=== PATIENT | male | born 1975 | race Caucasian/White ===

== ENCOUNTER 2016-10-11 19:19 | Emergency (ER) | payer OTHER ==
--- NOTE | 2016-10-11 19:25 | ER Document Report ---
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 Patient states that he repeatedly rinsed his eye at work. I have greeted and performed a rapid initial assessment of this patient. A comprehensive ED assessment and evaluation of the patient, analysis of test results and completion of the medical decision making process will be conducted by additional ED providers. Physical Exam - HEENT Conjunctiva: Injected, Other - Swelling noted to conjunctiva of left eye
[2016-10-11] MEDS ORDERED: DIPHENHYDRAMINE HCL 50 MG CAPSULE PO ONE (23:07)
--- NOTE | 2016-10-11 23:09 | ER Document Report ---
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 States that since that time he has had itching and redness of the left eye. It is moderately improved since onset. Nothing improves or worsens the symptoms. He has had similar reactions in the past and he has eaten fish. He denies any shortness of breath, cough, wheezing, vomiting, or diarrhea. He has not seen his primary care doctor regarding today's concerns. - Related Data Allergies/Adverse Reactions: fish derived Allergy (Severe, Verified 10/11/16 19:26) Past Medical History - General Information source: Patient - Social History Smoking Status: Never Smoker Chew tobacco use (# tins/day): No Frequency of alcohol use: None Drug Abuse: None Family History: Reviewed & Not Pertinent Patient has suicidal ideation: No Patient has homicidal ideation: No Renal/ Medical History: Denies: Hx Peritoneal Dialysis Review of Systems - Review of Systems Notes: Constitutional: Negative for fever. HENT: Negative for sore throat. Eyes: Positive for left-sided conjunctivitis Cardiovascular: Negative for chest pain. Respiratory: Negative for shortness of breath. Gastrointestinal: Negative for abdominal pain, vomiting or diarrhea. Genitourinary: Negative for dysuria. Musculoskeletal: Negative for back pain. Skin: Negative for rash. Neurological: Negative for headaches, weakness or numbness. 10 point ROS negative except as marked above and in HPI. Physical Exam - Vital signs Vitals: Temp Pulse Resp BP Pulse Ox 97.6 F 76 18 132/76 H 95 10/11/16 19:30 10/11/16 19:30 10/11/16 19:30 10/11/16 19:30 10/11/16 19:30 Interpretation: Normal Notes: PHYSICAL EXAMINATION: GENERAL: Well-appearing, well-nourished and in no acute distress. HEAD: Atraumatic, normocephalic. EYES: Pupils equal round and reactive to light, extraocular movements intact, conjunctival injection on the left. Ocular pressures 9 on the left 12 on the right. There is some erythema and mild edema of the superior and inferior eyelids. Fluorescing staining does not show any uptake ENT: nares patent, oropharynx clear without exudates. Moist mucous membranes. NECK: Normal range of motion, supple without lymphadenopathy LUNGS: Breath sounds clear to auscultation bilaterally and equal. No wheezes rales or rhonchi. HEART: Regular rate and rhythm without murmurs ABDOMEN: Soft, nontender, normoactive bowel sounds. No guarding, no rebound. No masses appreciated. EXTREMITIES: Normal range of motion, no pitting or edema. No cyanosis. NEUROLOGICAL: No focal neurological deficits. Moves all extremities spontaneously and on command. PSYCH: Normal mood, normal affect. SKIN: Warm, Dry, normal turgor, no rashes or lesions noted. Course - Re-evaluation Re-evalutation: 10/11/16 23:07 Patient presents with conjunctival irritation and lid edema consistent with likely allergic reaction. He was stocking fish and some of the juice from the fish got into his eye. He is known to be allergic to fish. Corneal staining without evidence of a corneal ulcer abrasion. Lid flipped and no evidence of a foreign body. Extraocular motions intact. Ocular pressures 9. 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 Verbal discharge instructions given a the bedside and opportunity for questions given. Medication warnings reviewed. Patient is in agreement with this plan and has verbalized understanding of return precautions and the need for primary care follow-up in the next 24-72 hours. - Vital Signs Vital signs: Temp Pulse Resp BP Pulse Ox 97.1 F 81 17 130/77 H 100 10/11/16 23:27 10/11/16 23:27 10/11/16 23:27 10/11/16 23:27 10/11/16 23:27 Discharge - Discharge Clinical Impression: Allergic conjunctivitis Qualifiers: Laterality: left Qualified Code(s): H10.12 - Acute atopic conjunctivitis, left eye Condition: Good Disposition: HOME, SELF-CARE Additional Instructions: You can take Benadryl 50 mg every 6 hours as needed for eye irritation. You can also purchase [id number] antihistamine eyedrops. Please follow-up with your eye doctor in the next several days. Return if you have worsening of the redness and discharge from the eye, increasing pain, decreased vision, or any other symptoms that are concerning to you. Forms: Return to Work
[2016-10-11 23:29] VITALS: BP 130/77
== END 2016-10-11 23:27 | disposition home or self-care (01) ==
LOC: ER 19:19
DX: H10.12 Acute atopic conjunctivitis, left eye (principal); X58.XXXA Exposure to other specified factors, initial encounter; Y93.89 Activity, other specified; Y92.512 Supermarket, store or market as the place of occurrence of the external cause; Y99.0 Civilian activity done for income or pay; Z91.013 Allergy to seafood
CPT/HCPCS: 99283

== ENCOUNTER 2020-04-11 19:22 | Emergency (ER) | payer BC, MEDICAID ==
[2020-04-11] MEDS ORDERED: KETOROLAC TROMETHAMINE INJ/PF 30 MG/1 ML SDV IV ONE ×2 (20:42→22:46)
[2020-04-11] MEDS ORDERED: METOCLOPRAMIDE HCL INJ/PF 10 MG/2 ML SDV IV ONE (20:42)
[2020-04-11] MEDS ORDERED: DIPHENHYDRAMINE HCL 50 MG/ML VIAL IV ONE (20:42)
[2020-04-11] MEDS ORDERED: RINGERS SOLUTION,LACTATED 1,000 ML IV ONE (20:42)
--- NOTE | 2020-04-11 20:43 | ER Document Report ---
ED Medical Screen (RME) - General Chief Complaint: Abdominal Pain Stated Complaint: ABDOMINAL PAIN, CHILLS, CONGESTION, HEADACHE Time Seen by Provider: 04/11/20 20:39 Mode of Arrival: Ambulatory Information source: Patient, Relative Notes: HPI; 44-year-old male past medical history significant for autism and migraines, here with his [id number] presents to the emergency room with a headache, sinus congestion and abdominal pain that started earlier today. Complains of nausea but no vomiting. No fevers. No urinary symptoms. No recent head injury or head trauma. States feels similar to previous migraines. No recent travel. No known COVID-19 exposure however he does work at [employer] and his employer told him he would need to be COVID tested before he can return to work. PE: Alert and oriented x3. Lungs: Clear to auscultation without rales, rhonchi, wheezes. Heart: Regular rate rhythm without murmurs, rubs, gallops. I have greeted and performed a rapid initial assessment of this patient. A comprehensive ED assessment and evaluation of the patient, analysis of test results and completion of the medical decision making process will be conducted by additional ED providers. I have specifically instructed the patient or family members with the patient to immediately return to any nursing staff should anything change in the patient's condition or with their chief complaint. TRAVEL OUTSIDE OF THE [place] IN LAST 30 DAYS: No - Related Data Allergies/Adverse Reactions: fish derived Allergy (Severe, Verified 10/11/16 19:26) Past Medical History Renal/ Medical History: Denies: Hx Peritoneal Dialysis Physical Exam - Vital signs Vitals: Temp Pulse Resp BP Pulse Ox 97.5 F 75 20 137/82 H 100 04/11/20 20:06 04/11/20 20:06 04/11/20 20:06 04/11/20 20:06 04/11/20 20:06 Course - Vital Signs Vital signs: Temp Pulse Resp BP Pulse Ox 97.5 F 75 20 137/82 H 100 04/11/20 20:06 04/11/20 20:06 04/11/20 20:06 04/11/20 20:06 04/11/20 20:06
--- NOTE | 2020-04-11 22:42 | ER Document Report ---
ED General - General Chief Complaint: Abdominal Pain Stated Complaint: ABDOMINAL PAIN, CHILLS, CONGESTION, HEADACHE Time Seen by Provider: 04/11/20 20:39 Mode of Arrival: Ambulatory Notes: Patient is a 44-year-old male that comes emergency department for chief complaint of feeling weak, abdominal pain and cramping, nausea, headache, some vague sinus congestion. Symptoms started earlier today. Patient states he also started getting chills and he appears to be having chills on my evaluation. Patient states he gets migraines and this feels similar, he has a history of autism, he takes no daily medications. Patient has no recent travel, no obvious sick exposures. Patient started complaining of symptoms at work earlier today and he was told reportedly that he would need COVID-19 testing before he can return to work because of his symptoms. TRAVEL OUTSIDE OF THE [place] IN LAST 30 DAYS: No - Related Data Allergies/Adverse Reactions: fish derived Allergy (Severe, Verified 10/11/16 19:26) Past Medical History - General Information source: Patient, Relative - Social History Smoking Status: Never Smoker Frequency of alcohol use: None Drug Abuse: None Lives with: Family Family History: Reviewed & Not Pertinent Neurological Medical History: Reports: Hx Migraine Renal/ Medical History: Denies: Hx Peritoneal Dialysis - Immunizations Immunizations up to date: Yes Hx Diphtheria, Pertussis, Tetanus Vaccination: Yes Review of Systems - Review of Systems Constitutional: See HPI EENT: No symptoms reported Cardiovascular: No symptoms reported Respiratory: No symptoms reported Gastrointestinal: See HPI Genitourinary: No symptoms reported Male Genitourinary: No symptoms reported Musculoskeletal: No symptoms reported Skin: No symptoms reported Hematologic/Lymphatic: No symptoms reported Neurological/Psychological: No symptoms reported Physical Exam - Vital signs Vitals: Temp Pulse Resp BP Pulse Ox 97.5 F 75 20 137/82 H 100 04/11/20 20:06 04/11/20 20:06 04/11/20 20:06 04/11/20 20:06 04/11/20 20:06 - Notes Notes: GENERAL: Alert, interacts well. No acute distress. HEAD: Normocephalic, atraumatic. EYES: Pupils equal, round, and reactive to light. Extraocular movements intact. ENT: Oral mucosa moist, tongue midline. Oropharynx unremarkable. Airway patent. Nares patent, sinuses non-tender, ear canals unremarkable, TM's intact. NECK: Full range of motion. Supple. Trachea midline. No lymphadenopathy. No nuchal rigidity. LUNGS: Clear to auscultation bilaterally, no wheezes, rales, or rhonchi. No respiratory distress. Non-tender chest wall. HEART: Regular rate and rhythm. No murmur ABDOMEN: Soft, non-tender. Non-distended. No distention or guarding. Bowel sounds present in all 4 quadrants. GENITOURINARY: Deferred EXTREMITIES: Moves all 4 extremities spontaneously. No edema, normal radial and dorsalis pedis pulses bilaterally. No cyanosis. BACK: no cervical, thoracic, lumbar midline tenderness. No saddle anesthesia, normal distal neurovascular exam. Moves all extremities in full range of motion. NEUROLOGICAL: Alert and oriented x3. Normal speech. Cranial nerves II through XII grossly intact. Strength 5/5 in all extremities. PSYCH: Normal affect, normal mood. SKIN: Warm, dry, normal turgor. No rashes or lesions noted. Course - Re-evaluation Re-evalutation: Patient is alert and well-appearing on my exam. No nuchal rigidity, no neurological deficits, no signs of distress. Soft benign abdomen, clear lungs, unremarkable ENT exam. CBC, chemistry, urinalysis unremarkable. On reevaluation patient states his headache is completely gone he has no current complaints, he is requesting COVID-19 testing and discharge. Apparently his work is requiring him to have this to return to work based on his symptoms, therefore this was performed, discussed quarantine, symptom management (provided with nausea medication), and return precautions in detail. Patient states appreciation and agreement. Stable and well-appearing at time of discharge. - Vital Signs Vital signs: Temp Pulse Resp BP Pulse Ox 98.0 F 79 19 130/73 H 100 04/12/20 01:30 04/12/20 01:30 04/12/20 01:30 04/12/20 01:30 04/12/20 01:30 - Laboratory Result Diagrams: 04/11/20 23:30 04/11/20 23:30 Discharge - Discharge Clinical Impression: Generalized weakness, Abdominal cramping, Chills, Person under investigation for COVID-19 Headache Qualifiers: Headache type: unspecified Headache chronicity pattern: acute headache Intractability: not intractable Qualified Code(s): R51 - Headache Condition: Stable Disposition: HOME, SELF-CARE Additional Instructions: Your evaluation and work-up is reassuring. The exact cause of your symptoms is uncertain but this could be viral. You have been tested for COVID-19. Please quarantine until you are contacted with your results. See additional instructions below. Take nausea medication if needed, you can take Tylenol and ibuprofen if needed for pain, drink plenty of fluids and rest. Return if you worsen including vomiting, severe abdominal pain, spiking fevers, difficulty breathing, or any other concerning symptoms. As a person under investigation for COVID-19, the [place] Department of Health and Human Services (division on public health) advises you to adhere to the following guidance until your test results are reported to you. If your test result is positive, you will receive additional information from your provider and your local health department at that time. Remain at home until you are cleared by the health provider or public health authorities. Keep a log of visitors to your home, notify any visitors to your home of your isolation status. If you plan to move to a new address or leave the [facility], notify the local health department in your County. Call your Doctor or seek care if you have an urgent medical need. Before seeking medical care, call him to get instructions from the provider before arriving at the medical office, clinic, or hospital. Notify them that you are being tested for the virus (COVID-19) so that arrangements can be made, as necessary, to prevent transmission to others in the healthcare setting. Next, notify the local health department in your county. If a medical emergency arises and you need to call 911, inform the first responders that you are being tested for the virus that causes COVID-19. Next, notify the local health department in your county. Prescriptions: Ondansetron [Zofran Odt 4 mg Tablet] 1 - 2 tab PO Q4H PRN #15 tab.rapdis PRN Reason: For Nausea/Vomiting Forms: Return to Work
[2020-04-11] MEDS ORDERED: METOCLOPRAMIDE HCL INJ/PF 10 MG/2 ML SDV ONE (22:59)
[2020-04-11 23:56] LABS: ABSOLUTE EOSINOPHILS # (AUTO) 0.3 10^3/uL (0.0-0.6); ABSOLUTE LYMPHOCYTES (AUTO) 1.7 10^3/uL (0.5-4.7); ABSOLUTE MONOCYTES (AUTO) 0.6 10^3/uL (0.1-1.4); ABSOLUTE NEUT (AUTO) 4.4 10^3/uL (1.7-8.2); BASOPHILS % (AUTO) 0.5 % (0-2); EOSINOPHILS % (AUTO) 4.5 % (0-6); HEMATOCRIT 45.5 % (37.9-51.0); HEMOGLOBIN 15.8 g/dL (13.5-17.0); LYMPHOCYTES % (AUTO) 24.7 % (13-45); MEAN CORPUSCULAR HGB CONC 34.7 g/dL (32.0-36.0); MEAN CORPUSCULAR VOLUME 89 fl (80-97); MONOCYTES % (AUTO) 8.1 % (3-13); PLATELET COUNT 236 10^3/uL (150-450); RED CELL DISTRIBUTION WIDTH 13.2 % (11.5-14.0); SEGMENTED NEUTROPHILS % (AUTO) 62.2 % (42-78); TOTAL CELLS COUNTED % (AUTO) 100 %
[2020-04-12 00:11] LABS: ALBUMIN 4.6 g/dL (3.5-5.0); ALKALINE PHOSPHATASE 64 U/L (38-126); ANION GAP 9 (5-19); ASPARTATE AMINO TRANSFERASE 27 U/L (17-59); BILIRUBIN,TOTAL 0.8 mg/dL (0.2-1.3); BLOOD UREA NITROGEN 13 mg/dL (7-20); CALCIUM 9.4 mg/dL (8.4-10.2); CARBON DIOXIDE 26 mmol/L (22-30); CHLORIDE 104 mmol/L (98-107); GLUCOSE 99 mg/dL (75-110); POTASSIUM 4.2 mmol/L (3.6-5.0); TOTAL PROTEIN 7.5 g/dL (6.3-8.2)
[2020-04-12 00:45] LABS: APPEARANCE,URINE CLEAR; BILIRUBIN,URINE NEGATIVE (NEGATIVE); COLOR,URINE STRAW; GLUCOSE, URINE NEGATIVE (NEGATIVE); KETONES,URINE NEGATIVE (NEGATIVE); LEUKOCYTE ESTERASE,URINE NEGATIVE (NEGATIVE); NITRITE,URINE NEGATIVE (NEGATIVE); PROTEIN,URINE NEGATIVE (NEGATIVE); URINE SPECIFIC GRAVITY 1.009; UROBILINOGEN,URINE NEGATIVE mg/dL (<2.0)
[2020-04-12 01:32] VITALS: BP 130/73
== END 2020-04-12 01:32 | disposition home or self-care (01) ==
LOC: ER 19:22
DX: R10.9 Unspecified abdominal pain (principal); R53.1 Weakness; R11.0 Nausea; R51 Headache; R09.81 Nasal congestion; F84.0 Autistic disorder; Z20.828 Contact with and (suspected) exposure to other viral communicable diseases
CPT/HCPCS: 99285; 96361; 96374; 96375; 36415; 83690; 85025; 87635; 80053; 81001; J1885; J2765; J7120; C9803